=== PATIENT | female | born 1990 | race Caucasian/White ===

== ENCOUNTER 2017-02-03 22:54 | Outpatient (CLI) | payer MEDICAID ==
[~2017-02-03] VITALS: Ht 162.6 cm; Wt 75.0 kg
[~2017-02-03 22:54] MED LIST: METH40TA3 PO; SERT100T PO
[2017-02-03 23:33] LABS: PATH.CAST-FLAG NOT PRESENT; SPERM-FLAG NOT PRESENT; SRC-FLAG NOT PRESENT; XTAL-FLAG NOT PRESENT; YLC-FLAG NOT PRESENT
[2017-02-04] MEDS ORDERED: CEFTRIAXONE 1,000 MG IM ONE (00:30)
[2017-02-04] MEDS ORDERED: ACETAMINOPHEN 325 MG TABLET PO PRN (00:30)
[2017-02-04] MEDS ORDERED: ACETAMINOPHEN 325 MG TABLET ONE (00:36)
[2017-02-04] MEDS ORDERED: LIDOCAINE 1%, 20ML ONE (01:11)
[2017-02-04] MEDS ORDERED: LIDOCAINE 1%, 20ML INFIL ONE (01:30)
== END 2017-02-04 01:40 | disposition home or self-care (01) ==
LOC: LDOP 22:54
PROVIDERS: ATTEND Student in an Organized Health Care Education/Training Program
DX: O26.892 Other specified pregnancy related conditions, second trimester (principal); R10.9 Unspecified abdominal pain; O42.912 Preterm premature rupture of membranes, unspecified as to length of time between rupture and onset of labor, second trimester; O36.8120 Decreased fetal movements, second trimester, not applicable or unspecified; Z3A.26 26 weeks gestation of pregnancy
CPT/HCPCS: 59025; 81001; 87077; 87086; 96372; 99211; J0696; J3490; G0463

== ENCOUNTER 2017-02-05 17:23 | Outpatient (CLI) | payer MEDICAID ==
[~2017-02-05] VITALS: Ht 162.6 cm; Wt 72.0 kg
[2017-02-05 18:17] LABS: AMNI LOT 5540986
[2017-02-05 18:18] LABS: DAU SCREEN DISCLAIMER
[2017-02-05] MEDS ORDERED: ACETAMINOPHEN 325 MG TABLET ONE (18:40)
[2017-02-05 18:52] LABS: AMNI OBC PASS; AMNISURE NEGATIVE (NEGATIVE)
[2017-02-05] MEDS ORDERED: ACETAMINOPHEN 325 MG TABLET PO PRN (19:00)
== END 2017-02-05 21:17 | disposition home or self-care (01) ==
LOC: LDOP 17:23
PROVIDERS: ATTEND Student in an Organized Health Care Education/Training Program
DX: O26.892 Other specified pregnancy related conditions, second trimester (principal); R10.9 Unspecified abdominal pain; M54.9 Dorsalgia, unspecified; O42.912 Preterm premature rupture of membranes, unspecified as to length of time between rupture and onset of labor, second trimester; O99.332 Smoking (tobacco) complicating pregnancy, second trimester; F17.200 Nicotine dependence, unspecified, uncomplicated; Z3A.26 26 weeks gestation of pregnancy
CPT/HCPCS: 36415; 59025; 76815; 80307; 81001; 82731; 84112; 87086; 99211; G0463

== ENCOUNTER 2017-03-02 10:37 | Observation (INO) | payer MEDICAID ==
[~2017-03-02] VITALS: Ht 162.6 cm; Wt 73.6 kg
[2017-03-02 11:08] VITALS: BP 108/73
[2017-03-02 12:20] LABS: HEMOGLOBIN 10.9 g/dL (11.7-16.4)
[2017-03-02] MEDS ORDERED: ALPR0.5T PO (13:12)
[2017-03-02] MEDS ORDERED: CYCLOBENZAPRINE 10 MG TABLET PO PRN ×2 (13:30→18:00)
[2017-03-02] MEDS ORDERED: ACETAMINOPHEN 325 MG TABLET ONE (14:29)
[2017-03-02] MEDS ORDERED: ACETAMINOPHEN 325 MG TABLET PO PRN (14:30)
[2017-03-02] MEDS ORDERED: DIPHENHYDRAMINE 25 MG CAPSULE ONE (22:26)
[2017-03-02] MEDS ORDERED: DIPHENHYDRAMINE 25 MG CAPSULE PO PRN (22:30)
== END 2017-03-03 09:24 | disposition home or self-care (01) ==
LOC: LDOP 10:37 → LDIP 11:33
PROVIDERS: ADMIT Student in an Organized Health Care Education/Training Program; ATTEND Student in an Organized Health Care Education/Training Program
DX: O9A.213 Injury, poisoning and certain other consequences of external causes complicating pregnancy, third trimester (principal); O99.013 Anemia complicating pregnancy, third trimester; O45.93 Premature separation of placenta, unspecified, third trimester; O99.343 Other mental disorders complicating pregnancy, third trimester; F41.9 Anxiety disorder, unspecified; O26.893 Other specified pregnancy related conditions, third trimester; M54.9 Dorsalgia, unspecified; G89.29 Other chronic pain; Z3A.30 30 weeks gestation of pregnancy; V49.49XA Driver injured in collision with other motor vehicles in traffic accident, initial encounter; Y92.89 Other specified places as the place of occurrence of the external cause; Y93.89 Activity, other specified; Y99.8 Other external cause status
CPT/HCPCS: 36415; 59025; 76819; 85025; 85460; 86850; 86870; 86900; 86904; 86905; 86906; 86970; 99211; G0378; Q0163; G0463

== ENCOUNTER 2017-04-17 20:15 | Inpatient (IN) | payer MEDICAID ==
[~2017-04-17] VITALS: Ht 162.6 cm; Wt 72.7 kg
[~2017-04-17 20:15] MED LIST changes: +ALPR0.5T PO; +METOCLOPRAMIDE 5 MG/ML, 2ML ONE; +MIDAZOLAM 1 MG/ML, 2ML ONE; +OXYTOCIN 10 UNITS/ML, 1ML ONE; +PROPOFOL 10 MG/ML, 20ML ONE; +SUCCINYLCHOLINE 20 MG/ML, 10ML ONE
[2017-04-17 21:06] LABS: DAU SCREEN DISCLAIMER
[2017-04-17] MEDS ORDERED: TERBUTALINE 1 MG/ML, 1ML ONE (21:18)
[2017-04-17] MEDS ORDERED: TERBUTALINE 1 MG/ML, 1ML SQ ONE (21:30)
[2017-04-17] MEDS ORDERED: LACTATED RINGERS 1,000 ML IVBOLUS ONE ×2 (21:30→23:00)
[2017-04-17] MEDS ORDERED: ONDANSETRON 2MG/ML, 2ML ONE (21:43)
[2017-04-17] MEDS ORDERED: ONDANSETRON 2MG/ML, 2ML IVPush ONE ×2 (22:00→23:00)
[2017-04-17] MEDS: LACTATED RINGERS 1,000 ML IV SCH (22:58)
[2017-04-17] MEDS: OXYTOCIN 30U/ 0.9% NaCL 500ML 500 ML IV SCH (22:58)
[2017-04-17] MEDS ORDERED: SODIUM CITRATE/CITRIC ACID 30 ML UDC PO ONE (23:00)
[2017-04-17] MEDS ORDERED: METOCLOPRAMIDE 5 MG/ML, 2ML IV ONE (23:00)
[2017-04-17] MEDS ORDERED: METOCLOPRAMIDE 5 MG/ML, 2ML ONE (23:01)
[2017-04-17] MEDS ORDERED: SODIUM CITRATE/CITRIC ACID 30 ML UDC ONE (23:01)
[2017-04-17] MEDS ORDERED: OXYTOCIN 30U/ 0.9% NaCL 500ML 500 ML ONE (23:03)
[2017-04-17] MEDS ORDERED: NEWBORN KIT ONE (23:03)
[2017-04-17 23:30] VITALS: BP 117/72
[2017-04-17] MEDS ORDERED: CLINDAMYCIN PMX 900MG/50ML 50 ML ONE (23:32)
[2017-04-18] MEDS ORDERED: LIDOCAINE/MPF 2%-EPI 1:200K, 20 ML ONE ×2 (00:13→00:21)
[2017-04-18] MEDS ORDERED: FENTANYL PF 250 MCG/5ML ONE (00:56)
[2017-04-18] MEDS ORDERED: MIDAZOLAM 1 MG/ML, 2ML ONE ×2 (01:00→01:50)
[2017-04-18] MEDS ORDERED: morphine SULFATE 10 MG/ML, 1ML ONE (01:49)
[2017-04-18] MEDS ORDERED: MEPERIDINE/PF 100 MG/ML ONE (01:50)
[2017-04-18] MEDS ORDERED: ONDANSETRON 2MG/ML, 2ML ONE (01:50)
[2017-04-18] MEDS: LACTATED RINGERS 1,000 ML IV SCH ×11 (01:51→21:51)
[2017-04-18] MEDS: morphine SULFATE 10 MG/ML, 1ML IVPush PRN ×2 (01:55→02:00)
[2017-04-18] MEDS ORDERED: OXYcodone IR 5MG TABLET PO PRN (02:00)
[2017-04-18] MEDS ORDERED: ACETAMINOPHEN 325 MG TABLET PO PRN ×2 (02:00)
[2017-04-18] MEDS ORDERED: morphine SULFATE 10 MG/ML, 1ML IVPush PRN ×2 (02:00)
[2017-04-18] MEDS ORDERED: ONDANSETRON 2MG/ML, 2ML IV PRN (02:00)
[2017-04-18] MEDS ORDERED: METOCLOPRAMIDE 5 MG/ML, 2ML IV PRN (02:00)
[2017-04-18] MEDS ORDERED: MISOPROSTOL 200 MCG TABLET PR PRN (02:00)
[2017-04-18] MEDS ORDERED: CALCIUM CARBONATE 500 MG TAB.CHEW PO PRN (02:00)
[2017-04-18] MEDS ORDERED: METHYLERGONOVINE 0.2 MG/ML IM PRN (02:00)
[2017-04-18] MEDS ORDERED: HYDROmorphone 1 MG/ML, 1ML ONE ×3 (02:10→02:42)
[2017-04-18] MEDS: HYDROmorphone 1 MG/ML, 1ML IV PRN ×7 (02:17→07:34)
[2017-04-18] MEDS ORDERED: MIDAZOLAM 1 MG/ML, 2ML IVPush PRN (03:00)
[2017-04-18] MEDS: OXYTOCIN 30U/ 0.9% NaCL 500ML 500 ML IV SCH ×4 (03:08→21:51)
[2017-04-18] MEDS ORDERED: DIAZEPAM 5 MG/ML, 10ML VIAL IM ONE (03:30)
[2017-04-18 05:00] VITALS: BP 98/58
[2017-04-18 06:45] VITALS: BP 103/67
[2017-04-18] MEDS: KETOROLAC 30 MG/1 ML IV SCH ×3 (07:06→19:16)
[2017-04-18 07:24] VITALS: BP 151/43
[2017-04-18] MEDS: METHADONE 10 MG TABLET PO SCH (08:16)
[2017-04-18] MEDS: PRENATAL VIT/IRON/FA 1 EACH TABLET PO SCH (09:00)
[2017-04-18] MEDS: OXYcodone IR 5MG TABLET PO PRN ×4 (11:12→23:35)
[2017-04-18 11:34] VITALS: BP 93/55
[2017-04-18 15:50] VITALS: BP 97/59
[2017-04-18] MEDS: SIMETHICONE 80 MG CHEW TAB PO PRN (18:18)
[2017-04-18 21:09] VITALS: BP 97/65
[2017-04-19 01:18] VITALS: BP 102/70
[2017-04-19] MEDS: KETOROLAC 30 MG/1 ML IV SCH ×2 (01:29→07:00)
[2017-04-19] MEDS: LACTATED RINGERS 1,000 ML IV SCH ×3 (01:51→09:51)
[2017-04-19 03:56] VITALS: BP 106/71
[2017-04-19] MEDS: OXYcodone IR 5MG TABLET PO PRN ×5 (04:00→21:36)
[2017-04-19 07:40] VITALS: BP 101/68
[2017-04-19] MEDS: OXYTOCIN 30U/ 0.9% NaCL 500ML 500 ML IV SCH (07:51)
[2017-04-19] MEDS: METHADONE 10 MG TABLET PO SCH (09:20)
[2017-04-19] MEDS: DOCUSATE 100 MG CAPSULE PO PRN ×2 (09:20→19:19)
[2017-04-19] MEDS: PRENATAL VIT/IRON/FA 1 EACH TABLET PO SCH (09:20)
[2017-04-19] MEDS: IBUPROFEN 600 MG TABLET PO PRN ×2 (13:30→19:19)
[2017-04-19] MEDS: SIMETHICONE 80 MG CHEW TAB PO PRN (19:19)
[2017-04-19 20:00] VITALS: BP 114/75
[2017-04-20] MEDS: OXYcodone IR 5MG TABLET PO PRN ×6 (01:31→21:35)
[2017-04-20] MEDS: SIMETHICONE 80 MG CHEW TAB PO PRN (01:31)
[2017-04-20] MEDS: IBUPROFEN 600 MG TABLET PO PRN ×4 (01:31→20:02)
[2017-04-20 07:25] VITALS: BP 105/73
[2017-04-20] MEDS: DOCUSATE 100 MG CAPSULE PO PRN ×2 (07:26→20:02)
[2017-04-20] MEDS: PRENATAL VIT/IRON/FA 1 EACH TABLET PO SCH (07:26)
[2017-04-20] MEDS: METHADONE 10 MG TABLET PO SCH (07:26)
[2017-04-20] MEDS: SERTRALINE 100MG TABLET PO SCH (10:21)
[2017-04-20 20:00] VITALS: BP 106/71
[2017-04-21] MEDS: OXYcodone IR 5MG TABLET PO PRN ×5 (01:27→20:30)
[2017-04-21] MEDS: IBUPROFEN 600 MG TABLET PO PRN ×2 (05:58→16:34)
[2017-04-21 07:40] VITALS: BP 101/67
[2017-04-21] MEDS: PRENATAL VIT/IRON/FA 1 EACH TABLET PO SCH (08:41)
[2017-04-21] MEDS: METHADONE 10 MG TABLET PO SCH (08:41)
[2017-04-21] MEDS: DOCUSATE 100 MG CAPSULE PO PRN ×2 (08:41→19:33)
[2017-04-21] MEDS: SERTRALINE 100MG TABLET PO SCH (11:29)
[2017-04-21 20:00] VITALS: BP 124/87
[2017-04-22] MEDS: IBUPROFEN 600 MG TABLET PO PRN ×2 (00:27→06:28)
[2017-04-22] MEDS: OXYcodone IR 5MG TABLET PO PRN ×3 (00:28→10:37)
[2017-04-22 07:31] VITALS: BP 110/74
[2017-04-22] MEDS: METHADONE 10 MG TABLET PO SCH (08:19)
[2017-04-22] MEDS: SERTRALINE 100MG TABLET PO SCH (08:20)
[2017-04-22] MEDS: PRENATAL VIT/IRON/FA 1 EACH TABLET PO SCH (08:20)
[2017-04-22] MEDS: DOCUSATE 100 MG CAPSULE PO PRN (08:20)
[2017-04-22] MEDS ORDERED: MORP30TA81 PO (13:08)
[2017-04-22] MEDS ORDERED: OXYC5TAB2 PO (13:10)
[2017-04-22] MEDS ORDERED: IBUP-1222 PO (13:11)
[2017-04-22] MEDS ORDERED: SENN8.6T4 PO (13:12)
[2017-04-22] MEDS ORDERED: DOCU-30 PO (13:12)
[2017-04-22] MEDS ORDERED: FERR325T23 PO (13:13)
== END 2017-04-22 14:42 | disposition home or self-care (01) | DRG 765 ==
LOC: LDOP 20:15 → LDIP 23:00 → 2NW 04-18 04:26
PROVIDERS: ADMIT Student in an Organized Health Care Education/Training Program; ATTEND Student in an Organized Health Care Education/Training Program
PROC: 10D00Z1 Extraction of Products of Conception, Low, Open Approach (ICD-10-PCS; principal; 2017-04-18)
PROC: 0UB70ZZ Excision of Bilateral Fallopian Tubes, Open Approach (ICD-10-PCS; 2017-04-18)
DX: O34.211 Maternal care for low transverse scar from previous cesarean delivery (principal); O99.324 Drug use complicating childbirth; O72.1 Other immediate postpartum hemorrhage; D62 Acute posthemorrhagic anemia; F11.90 Opioid use, unspecified, uncomplicated; O90.81 Anemia of the puerperium; K66.0 Peritoneal adhesions (postprocedural) (postinfection); G89.29 Other chronic pain; O69.81X0 Labor and delivery complicated by cord around neck, without compression, not applicable or unspecified; O35.8XX0 Maternal care for other (suspected) fetal abnormality and damage, not applicable or unspecified; Z3A.37 37 weeks gestation of pregnancy; Z80.3 Family history of malignant neoplasm of breast; Z80.41 Family history of malignant neoplasm of ovary; Z81.8 Family history of other mental and behavioral disorders; Z37.0 Single live birth; Z82.0 Family history of epilepsy and other diseases of the nervous system; Z82.3 Family history of stroke; Z30.2 Encounter for sterilization; Z87.59 Personal history of other complications of pregnancy, childbirth and the puerperium
CPT/HCPCS: 36415; 80307; 81003; 82803; 85025; 86850; 86870; 86880; 86900; 86902; 86922; 86923; 86970; 87086; 88302; J1170; J1885; J2250; J2405; J2704; J3010; J3360; J0330; J2270; J2590; J2765; J3105; J7120

== ENCOUNTER 2018-05-20 22:04 | Emergency (ER) | payer MEDICAID ==
[~2018-05-20] VITALS: Ht 165.1 cm; Wt 65.0 kg
[~2018-05-20 22:04] MED LIST changes: +DOCU-131 PO; +FERR325T23 PO; +IBUP-1222 PO; -METOCLOPRAMIDE 5 MG/ML, 2ML ONE; -MIDAZOLAM 1 MG/ML, 2ML ONE; +MORP30TA81 PO; +OXYC5TAB2 PO; -OXYTOCIN 10 UNITS/ML, 1ML ONE; -PROPOFOL 10 MG/ML, 20ML ONE; +SENN-87 PO; -SUCCINYLCHOLINE 20 MG/ML, 10ML ONE
[2018-05-20 22:37] LABS: BASOPHILS # (AUTO) 0.03 x10^3/uL (0-0.1); BASOPHILS % (AUTO) 0 % (0-1); EOSINOPHILS # (AUTO) 0.07 x10^3/uL (0-0.4); EOSINOPHILS % (AUTO) 1 % (1-7); LYMPHOCYTES # (AUTO) 3.91 x10^3/uL (1-3.4); LYMPHOCYTES % (AUTO) 40 % (22-44); MD NO; MEAN CORPUSCULAR HEMOGLOBIN 28.1 pg (27.0-34.8); MEAN CORPUSCULAR HGB CONC 32.6 g/dL (32.4-35.8); MEAN CORPUSCULAR VOLUME 86.1 fL (80-100); MEAN PLATELET VOLUME 7.8 fL (7.4-10.4); MONOCYTES # (AUTO) 0.42 x10^3/uL (0.2-0.8); MONOCYTES % (AUTO) 4 % (2-9); NEUTROPHILS # (AUTO) 5.44 x10^3/uL (1.8-6.8); NEUTROPHILS % (AUTO) 55 % (42-75); PLATELET COUNT 340 x10^3/uL (130-400); RED BLOOD COUNT 5.14 x10^6/uL (3.82-5.3); RED CELL DISTRIBUTION WIDTH 16.1 % (9.6-15.2)
[2018-05-20] MEDS ORDERED: ALPR2TAB2 PO (22:39)
[2018-05-20 22:49] LABS: ALBUMIN 4.6 g/dL (3.4-5.0); ANION GAP 7 mmol/L (5-15); CALCIUM 9.2 mg/dL (8.5-10.1); CHLORIDE 108 mmol/L (98-107); CREATININE 0.95 mg/dL (0.55-1.02)
[2018-05-20 22:51] LABS: SALICYLATE LEVEL < 1.7 mg/dL (2.8-20.0)
[2018-05-20 22:54] LABS: ACETAMINOPHEN < 2 mcg/mL (10-30)
[2018-05-20 23:12] LABS: AMPHETAMINE SCREEN, URINE Negative (Negative); BARBITURATE SCREEN, URINE Negative (Negative); BENZODIAZEPINE SCREEN, URINE Positive (Negative); CANNABINOID SCREEN, URINE Negative (Negative); COCAINE SCREEN, URINE Negative (Negative); METHADONE SCREEN, URINE Positive (Negative); OPIATE SCREEN, URINE Negative (Negative)
[2018-05-21 07:03] VITALS: BP 96/58
== END 2018-05-21 09:30 | disposition home or self-care (01) ==
LOC: ED 05-21 00:11
DX: F10.10 Alcohol abuse, uncomplicated (principal); R45.851 Suicidal ideations; S61.512A Laceration without foreign body of left wrist, initial encounter; X78.8XXA Intentional self-harm by other sharp object, initial encounter; Y93.89 Activity, other specified; Y92.89 Other specified places as the place of occurrence of the external cause; Y99.8 Other external cause status
CPT/HCPCS: 36415; 80048; 80307; 80329; 82040; 84703; 85025; 99284; G0480

== ENCOUNTER 2020-06-19 01:36 | Inpatient (IN) | payer MEDICAID ==
[~2020-06-19] VITALS: Ht 160 cm; Wt 73.2 kg
[~2020-06-19 01:36] MED LIST changes: +ALPR2TAB2 PO; +SENN-190 PO; -SENN-87 PO
[2020-06-19] MEDS ORDERED: OXYcodone/APAP 5/325MG TABLET ONE (02:00)
[2020-06-19] MEDS ORDERED: OXYcodone/APAP 5/325MG TABLET PO ONE ×2 (02:00→22:00)
[2020-06-19 02:21] LABS: BASOPHILS # (AUTO) 0.04 x10^3/uL (0-0.1); BASOPHILS % (AUTO) 0 % (0-1); EOSINOPHILS # (AUTO) 0.27 x10^3/uL (0-0.4); EOSINOPHILS % (AUTO) 2 % (1-7); LYMPHOCYTES # (AUTO) 1.98 x10^3/uL (1-3.4); LYMPHOCYTES % (AUTO) 16 % (22-44); MD NO; MEAN CORPUSCULAR HEMOGLOBIN 28.2 pg (27.0-34.8); MEAN CORPUSCULAR HGB CONC 32.3 g/dL (32.4-35.8); MEAN CORPUSCULAR VOLUME 87.2 fL (80-100); MEAN PLATELET VOLUME 7.4 fL (7.4-10.4); MONOCYTES # (AUTO) 0.58 x10^3/uL (0.2-0.8); MONOCYTES % (AUTO) 5 % (2-9); NEUTROPHILS # (AUTO) 9.75 x10^3/uL (1.8-6.8); NEUTROPHILS % (AUTO) 77 % (42-75); PLATELET COUNT 340 x10^3/uL (130-400); RED BLOOD COUNT 4.53 x10^6/uL (3.82-5.3); RED CELL DISTRIBUTION WIDTH 14.2 % (9.6-15.2)
[2020-06-19 02:26] LABS: ALBUMIN 3.4 g/dL (3.4-5.0); ANION GAP 6 mmol/L (5-15); CALCIUM 8.6 mg/dL (8.5-10.1); CHLORIDE 109 mmol/L (98-107); CREATININE 0.84 mg/dL (0.55-1.02)
[2020-06-19] MEDS ORDERED: POTASSIUM CHLORIDE 20 MEQ TAB.ER.PRT ONE (02:45)
[2020-06-19] MEDS ORDERED: POTASSIUM CHLORIDE 20 MEQ TAB.ER.PRT PO ONE (03:00)
[2020-06-19] MEDS ORDERED: ONDANSETRON 2MG/ML, 2ML ONE (03:19)
[2020-06-19] MEDS ORDERED: MORPHINE SULFATE 4 MG/ML, 1ML ONE ×2 (03:19→04:54)
[2020-06-19] MEDS ORDERED: CEFTRIAXONE PMX 1GM/50ML 50 ML ONE (03:20)
[2020-06-19] MEDS ORDERED: ONDANSETRON 2MG/ML, 2ML IVPush ONE (03:30)
[2020-06-19] MEDS ORDERED: CEFTRIAXONE PMX 1GM/50ML 50 ML IVPB ONE (03:30)
[2020-06-19] MEDS ORDERED: VANCOMYCIN PER PHARMACY MC ONE (03:30)
[2020-06-19] MEDS ORDERED: VANCOMYCIN 1,600 MG in SODIUM CHLORIDE 0.9% 250 ML IV ONE (04:30)
[2020-06-19] MEDS ORDERED: PHARMACOKINETIC CONSULTATION MC ONE (04:30)
--- NOTE | 2020-06-19 04:34 | NUR ---
Late entry from 0200: Patient presents to ER c/o pain, redness, and swelling to left hand x1 week. Scab noted on top of hand. Patient also has scabs on her right forearm with mild swelling. Patient has a recent hx of IV drug use. Denies trauma.
[2020-06-19] MEDS: MORPHINE SULFATE 4 MG/ML, 1ML IV PRN ×2 (04:43→04:58)
--- NOTE | 2020-06-19 04:44 | NUR ---
Report given to VLAD Garrison. Patient to be transferred to room 367. US IV established and pain meds admin per jan. One set of blood cultures drawn. Lab in room now drawing second set. Will initiate antibiotics after per jan.
[2020-06-19] MEDS ORDERED: BISACODYL 10 MG SUPP PR PRN (05:30)
[2020-06-19] MEDS ORDERED: CLINDAMYCIN PMX 300MG/50ML 50 ML IV SCH (05:30)
[2020-06-19] MEDS ORDERED: ACETAMINOPHEN 325 MG TABLET PO PRN (05:30)
[2020-06-19] MEDS ORDERED: ONDANSETRON 2MG/ML, 2ML IVPush PRN (05:30)
[2020-06-19] MEDS ORDERED: PROMETHAZINE 25 MG/ML, 1ML IM PRN (05:30)
[2020-06-19] MEDS: NICOTINE 14MG/24 HR PATCH.TD24 TD SCH (05:30)
[2020-06-19] MEDS: ENOXAPARIN 40 MG/0.4 ML SQ SCH ×2 (05:30→06:18)
[2020-06-19] MEDS ORDERED: TRAZODONE 50MG TABLET PO PRN (05:30)
[2020-06-19 05:56] VITALS: BP 121/77
[2020-06-19] MEDS: morphine SULFATE 10 MG/ML, 1ML IVPush PRN ×2 (06:02→06:27)
[2020-06-19] MEDS: CLINDAMYCIN PMX 600MG/50ML 50 ML IV SCH ×3 (06:17→21:30)
[2020-06-19 06:42] LABS: HCG UR SG 1.011 (1.003-1.030)
[2020-06-19 06:43] LABS: MICROSCOPIC INDICATED
[2020-06-19 06:51] LABS: AMPHETAMINE SCREEN, URINE Positive (Negative); BARBITURATE SCREEN, URINE Negative (Negative); BENZODIAZEPINE SCREEN, URINE Positive (Negative); CANNABINOID SCREEN, URINE Negative (Negative); COCAINE SCREEN, URINE Negative (Negative); METHADONE SCREEN, URINE Negative (Negative); OPIATE SCREEN, URINE Positive (Negative)
[2020-06-19 07:18] LABS: ALBUMIN 3.2 g/dL (3.4-5.0); BILIRUBIN, DIRECT 0.2 mg/dL (0.1-0.2)
[2020-06-19 07:20] LABS: BILIRUBIN,INDIRECT 0.3 mg/dL (0.0-2.0); BILIRUBIN,TOTAL 0.5 mg/dL (0.2-1.0); TOTAL PROTEIN 6.5 g/dL (6.4-8.2)
[2020-06-19 07:50] VITALS: BP 119/72
[2020-06-19] MEDS: SENNA/DOCUSATE TABLET PO SCH (09:00)
[2020-06-19] MEDS: POTASSIUM CHLORIDE 20 MEQ, MAGNESIUM SULFATE 2 GM, THIAMINE 200 MG, MVI ADULT 10 ML, FO... IV SCH (09:09)
[2020-06-19 13:09] VITALS: BP 110/68
[2020-06-19] MEDS ORDERED: HYDROmorphone 1 MG/ML, 1ML INJ IM PRN (14:00)
[2020-06-19] MEDS ORDERED: HYDROmorphone 1 MG/ML, 1ML INJ ONE (14:12)
[2020-06-19] MEDS: HYDROmorphone 1 MG/ML, 1ML INJ IV PRN ×2 (14:28→20:31)
[2020-06-19] MEDS ORDERED: LIDOCAINE 1%-EPI 1:100K, 30ML INFIL ONE (16:00)
[2020-06-19] MEDS: HYDROcodone/APAP 5/325 TABLET PO PRN (17:52)
[2020-06-19 19:03] VITALS: BP 123/80
[2020-06-19] MEDS ORDERED: HYDROmorphone 1 MG/ML, 1ML INJ IV PRN (20:00)
[2020-06-19] MEDS ORDERED: SERT-238 PO (21:40)
[2020-06-19] MEDS ORDERED: ALPR1TAB2 PO (21:41)
[2020-06-19] MEDS ORDERED: TRAZ-175 PO (21:42)
[2020-06-19] MEDS ORDERED: QUET100T4 PO (21:42)
[2020-06-19] MEDS ORDERED: SERTRALINE 100MG TABLET PO PRN (22:00)
[2020-06-19] MEDS ORDERED: QUETIAPINE 100MG TABLET PO PRN (22:30)
[2020-06-20 00:08] VITALS: BP 107/70
[2020-06-20] MEDS: ENOXAPARIN 40 MG/0.4 ML SQ SCH (04:33)
[2020-06-20] MEDS: NICOTINE 14MG/24 HR PATCH.TD24 TD SCH (04:34)
[2020-06-20] MEDS: CLINDAMYCIN PMX 600MG/50ML 50 ML IV SCH ×3 (05:36→21:39)
[2020-06-20 06:23] VITALS: BP 96/50
[2020-06-20 07:14] LABS: BASOPHILS # (AUTO) 0.02 x10^3/uL (0-0.1); BASOPHILS % (AUTO) 0 % (0-1); EOSINOPHILS # (AUTO) 0.29 x10^3/uL (0-0.4); EOSINOPHILS % (AUTO) 4 % (1-7); LYMPHOCYTES # (AUTO) 2.84 x10^3/uL (1-3.4); LYMPHOCYTES % (AUTO) 40 % (22-44); MD NO; MEAN CORPUSCULAR HEMOGLOBIN 28.6 pg (27.0-34.8); MEAN CORPUSCULAR HGB CONC 32.1 g/dL (32.4-35.8); MEAN CORPUSCULAR VOLUME 88.9 fL (80-100); MEAN PLATELET VOLUME 7.4 fL (7.4-10.4); MONOCYTES # (AUTO) 0.38 x10^3/uL (0.2-0.8); MONOCYTES % (AUTO) 5 % (2-9); NEUTROPHILS # (AUTO) 3.56 x10^3/uL (1.8-6.8); NEUTROPHILS % (AUTO) 50 % (42-75); PLATELET COUNT 298 x10^3/uL (130-400); RED BLOOD COUNT 4.04 x10^6/uL (3.82-5.3); RED CELL DISTRIBUTION WIDTH 14.4 % (9.6-15.2)
[2020-06-20 07:22] LABS: ANION GAP 5 mmol/L (5-15); CHLORIDE 109 mmol/L (98-107); CREATININE 0.68 mg/dL (0.55-1.02)
[2020-06-20] MEDS: POTASSIUM CHLORIDE 20 MEQ, MAGNESIUM SULFATE 2 GM, THIAMINE 200 MG, MVI ADULT 10 ML, FO... IV SCH (09:00)
[2020-06-20] MEDS: SENNA/DOCUSATE TABLET PO SCH (09:00)
[2020-06-20] MEDS: HYDROcodone/APAP 5/325 TABLET PO PRN ×3 (10:50→17:27)
[2020-06-20 12:39] VITALS: BP 99/60
[2020-06-20] MEDS: HYDROmorphone 1 MG/ML, 1ML INJ IV PRN ×2 (14:17→20:32)
[2020-06-20 19:53] VITALS: BP 122/83
[2020-06-21 01:53] VITALS: BP 109/76
[2020-06-21] MEDS: HYDROmorphone 1 MG/ML, 1ML INJ IV PRN ×2 (02:30→08:56)
[2020-06-21 04:55] LABS: BASOPHILS # (AUTO) 0.02 x10^3/uL (0-0.1); BASOPHILS % (AUTO) 0 % (0-1); EOSINOPHILS # (AUTO) 0.34 x10^3/uL (0-0.4); EOSINOPHILS % (AUTO) 5 % (1-7); LYMPHOCYTES # (AUTO) 3.19 x10^3/uL (1-3.4); LYMPHOCYTES % (AUTO) 45 % (22-44); MD NO; MEAN CORPUSCULAR HEMOGLOBIN 28.4 pg (27.0-34.8); MEAN CORPUSCULAR VOLUME 88.9 fL (80-100); MEAN PLATELET VOLUME 7.4 fL (7.4-10.4); MONOCYTES # (AUTO) 0.42 x10^3/uL (0.2-0.8); MONOCYTES % (AUTO) 6 % (2-9); NEUTROPHILS % (AUTO) 45 % (42-75); PLATELET COUNT 330 x10^3/uL (130-400); RED BLOOD COUNT 4.25 x10^6/uL (3.82-5.3); RED CELL DISTRIBUTION WIDTH 14.4 % (9.6-15.2)
[2020-06-21 04:58] LABS: ALBUMIN 2.9 g/dL (3.4-5.0); ANION GAP 5 mmol/L (5-15); CALCIUM 8.3 mg/dL (8.5-10.1); CHLORIDE 108 mmol/L (98-107); CREATININE 0.58 mg/dL (0.55-1.02)
[2020-06-21] MEDS: ENOXAPARIN 40 MG/0.4 ML SQ SCH (05:30)
[2020-06-21] MEDS: NICOTINE 14MG/24 HR PATCH.TD24 TD SCH (05:30)
[2020-06-21] MEDS: HYDROcodone/APAP 5/325 TABLET PO PRN ×5 (06:11→20:27)
[2020-06-21] MEDS: CLINDAMYCIN PMX 600MG/50ML 50 ML IV SCH ×3 (06:11→20:26)
[2020-06-21 07:12] VITALS: BP 96/61
[2020-06-21] MEDS: SENNA/DOCUSATE TABLET PO SCH (08:55)
[2020-06-21] MEDS ORDERED: SULF1TAB24 PO (13:17)
[2020-06-21] MEDS ORDERED: CEFD300C37 PO ×2 (13:22)
[2020-06-21 14:39] VITALS: BP 107/71
[2020-06-21 18:30] VITALS: BP 102/64
[2020-06-22 00:34] VITALS: BP 106/72
[2020-06-22] MEDS: HYDROcodone/APAP 5/325 TABLET PO PRN ×2 (01:51→09:40)
[2020-06-22] MEDS: CLINDAMYCIN PMX 600MG/50ML 50 ML IV SCH (05:07)
[2020-06-22] MEDS: HYDROmorphone 1 MG/ML, 1ML INJ IV PRN (05:07)
[2020-06-22] MEDS: NICOTINE 14MG/24 HR PATCH.TD24 TD SCH (05:18)
[2020-06-22] MEDS: ENOXAPARIN 40 MG/0.4 ML SQ SCH (05:18)
[2020-06-22 07:46] VITALS: BP 94/61
[2020-06-22] MEDS: SENNA/DOCUSATE TABLET PO SCH (09:00)
== END 2020-06-22 12:32 | disposition home or self-care (01) | DRG 854 ==
LOC: ED 03:14 → 3N 03:15 → DCLOUNGE 06-22 12:18
PROVIDERS: ADMIT Family Medicine; ATTEND Internal Medicine
PROC: 0JBK0ZZ Excision of Left Hand Subcutaneous Tissue and Fascia, Open Approach (ICD-10-PCS; principal; 2020-06-19)
DX: A41.9 Sepsis, unspecified organism (principal); L02.414 Cutaneous abscess of left upper limb; L02.512 Cutaneous abscess of left hand; L03.114 Cellulitis of left upper limb; N39.0 Urinary tract infection, site not specified; B95.4 Other streptococcus as the cause of diseases classified elsewhere; F17.210 Nicotine dependence, cigarettes, uncomplicated; E87.6 Hypokalemia; F15.10 Other stimulant abuse, uncomplicated; K59.00 Constipation, unspecified; Z66 Do not resuscitate; Z82.0 Family history of epilepsy and other diseases of the nervous system; Z82.49 Family history of ischemic heart disease and other diseases of the circulatory system; Z88.0 Allergy status to penicillin; Z91.040 Latex allergy status
CPT/HCPCS: 36415; 73130; 96374; 96375; 96376; 99285; J7042; 71046; 80048; 80069; 80076; 80307; 81001; 81025; 82040; 83605; 83735; 85025; 87040; 87077; 87086; 93005; G0378; J0696; J1170; J1650; J2405; J3411; J3475; J3480; J2270